=== PATIENT | male | born 1990 | race African-American/Black ===

== ENCOUNTER 2016-09-20 16:13 | Emergency (ER) | payer SELFPAY ==
[~2016-09-20] VITALS: Ht 187.9 cm; Wt 113.4 kg
[2016-09-20] MEDS ORDERED: AUGMENTIN 875875 MG PO (17:14)
[2016-09-20] MEDS ORDERED: CLARITIN-D 12 H1 TAB PO (17:14)
[2016-09-20] MEDS ORDERED: FLONASE ALLERG9.9 ML NAS (17:14)
== END 2016-09-20 17:16 | disposition home or self-care (01) ==
LOC: ED 16:13
DX: J01.01 Acute recurrent maxillary sinusitis (principal)